=== PATIENT | female | born 1935 | race Caucasian/White ===

== ENCOUNTER → 2016-07-04 | Outpatient (CLI) | payer MEDICARE ==
[~2016-07-04] MED LIST: ACIDOPHILUS1 CA1 PO; ALLEGRA180 MG PO; AMLODIPINE BESYL5 MG PO; ANTIVERT; CALCIUM CITRATE PO; CALCIUM CITRATE1 T15 PO; CARAFATE1 G PO; DURAGESIC1 EAC1 TD; ESTER C 500 MG PO; FLECTOR1 EACH; FLECTOR1 EACH TOP; FLEXI JOINT TAB1 TA1 PO; FOLIC ACID; FOLIC ACID1 MG PO; FOSAMAX70 MG PO; FUROSEMIDE40 MG PO; IMDUR; K-DUR10 MEQ PO; KLOR-CON 88 ME1 PO; LASIX PO; LEVOXYL0.137 MG PO; LIPITOR; LOPRESSOR; LOPRESSOR PO; MAGOXIDE PO; METHOTREXATE2.5 MG; METHOTREXATE25 MG/M3 INJ; METHOTREXATE25 MG/M3 SUBQ; METOPROLOL TART25 MG PO; MIRALAX17 GM; MULTIVITAMIN1 UDCAP PO; NEXIUM; NORVASC; OMEPRAZOLE40 M1 PO; OMEPRAZOLE40 MG; OMEPRAZOLE40 MG PO; ONDANSETRON ODT4 MG PO; PERIACTIN4 M1 PO; PRAVACHOL80 MG PO; PRAVASTATIN SOD80 MG PO; PREDNISONE PO; PREDNISONE5 M1 PO; PREMARIN; REMERON15 MG PO; REMICADE INFUSION IV; SENNA; SERTRALINE HCL50 M1 PO; SYNTHROID; VIT D PO; VITAMIN E1000 UNIT PO; [UNRECOGNIZED DRUG - OTHER]
--- NOTE | ~2016-07-04 | CT2 ---
[facility] A Service of [facility] RADIOLOGY TEXT RESULTS PATIENT: KRISTA MEJÍA LOCATION: [facility] : 36 UNIT #: [id number] AGE: [address]: Chaz Escudero MD SEX: F ORDER DR: [id number] [facility] [address] [place], [place] [address] [id number] O MR#: [id number] Acc #: [id number] NAME: KRISTA MEJÍA. : 1935 SEX: F STUDY DATE/TIME: 07/04/2016 10:44 UNIT: [facility] ROOM: STUDY DESCRIPTION: CT Abd and Pelv W Cont Attending Physician: Chaz Escudero M.D. Ordering Physician: Chaz Escudero M.D. Primary Care Physician: Heber Grossman D.O. MEDICAL IMAGING REPORT This report is preliminary unless electronic signature is present EXAM CT abdomen and pelvis with contrast. INDICATION Restaging leukemia and colon cancer. Observation for metastatic disease. PROCEDURE Contrast-enhanced CT of the abdomen and pelvis. 100 mL of Isovue-370. This CT exam was performed with one or more of the following radiation dose reduction techniques: automatic exposure control, adjustment of mA and/or kV according to patient size, and iterative reconstruction. COMPARISON STUDIES 01/10/2016 FINDINGS ABDOMEN WITH CONTRAST: Refer to the separately dictated chest CT for thoracic findings. ABDOMEN WITH CONTRAST: Calcifications along the liver capsule posterior right hepatic lobe are stable. There is no liver mass. Spleen, kidneys, adrenal glands unremarkable. Pancreas is atrophic but otherwise unremarkable. Previous cholecystectomy. Bowel loops nondilated. PELVIS WITH CONTRAST: Previous hysterectomy. No pelvic mass or fluid. 2 cm right Bartholin gland cyst is stable. No aggressive appearing bone lesions. IMPRESSION 1. No acute findings in the abdomen or pelvis. 2. No convincing evidence for metastatic disease to the abdomen or pelvis. [facility] A Service of [facility] RADIOLOGY TEXT RESULTS PATIENT: KRISTA MEJÍA LOCATION: [facility] : 36 UNIT #: [id number] AGE: [address]: Chaz Escudero MD SEX: F ORDER DR: Dictated by... Good Coleman M.D. THIS IS AN ELECTRONICALLY VERIFIED REPORT Good Coleman M.D. at 07/04/2016 5:05 PM EED/emily TD: 07/04/2016 12:06 JOB #: [id number] MEDICAL IMAGING REPORT Page 1 of 1 COPY
--- NOTE | ~2016-07-04 | CT55 ---
[facility] A Service [facility] RADIOLOGY TEXT RESULTS PATIENT: KRISTA MEJÍA LOCATION: [facility] : 36 UNIT #: [id number] AGE: [address]: Chaz Escudero MD SEX: F ORDER DR: [id number] [facility] [address] [place], [place] [address] [id number] O MR#: [id number] Acc #: [id number] NAME: KRISTA MEJÍA : 1935 SEX: F STUDY DATE/TIME: 07/04/2016 10:44 UNIT: [facility] ROOM: STUDY DESCRIPTION: CT Chest W Con Attending Physician: Chaz Escudero M.D. Ordering Physician: Chaz Escudero M.D. Primary Care Physician: Heber Grossman D.O. MEDICAL IMAGING REPORT This report is preliminary unless electronic signature is present EXAM CT chest with contrast INDICATION Restaging leukemia and colon cancer. Observation for metastatic disease. PROCEDURE Contrast-enhanced CT chest. 100 mL of Isovue-370. COMPARISON 07/22/2012. TECHNIQUE This CT examination was performed with one or more of the following radiation dose reduction techniques: automatic exposure control, adjustment of mA and/or kV according to patient size, and iterative reconstruction. FINDINGS Elevated right hemidiaphragm with chronic atelectasis in the right lung base. Left lung is clear. No pathologically enlarged lymph nodes in the chest. Previously demonstrated prominent left axillary nodes are smaller and now normal in size. No aggressive appearing bone lesion. IMPRESSION 1. No convincing evidence for adenopathy in the chest. No evidence for metastatic disease. 2. The previously demonstrated prominent left axillary nodes are now normal in size. Dictated by... Good Coleman M.D. [facility] A Service [facility] RADIOLOGY TEXT RESULTS PATIENT: KRISTA MEÍJA LOCATION: [facility] : 36 UNIT #: [id number] AGE: [address]: Chaz Escudero MD SEX: F ORDER DR: THIS IS AN ELECTRONICALLY VERIFIED REPORT Good Coleman M.D. at 07/04/2016 5:05 PM CAROL/kane TD: 07/04/2016 12:32 JOB #: [id number] MEDICAL IMAGING REPORT Page 1 of 1 COPY
[2016-07-04 10:06] LABS: POC - CREATININE 0.89 mg/dL (0.44-1.03); POC - GFR >60.0 mL/min (>60)
== END | disposition home or self-care (01) ==
LOC: CCAT 09:21
PROVIDERS: Internal Medicine Medical Oncology
DX: C91.10 Chronic lymphocytic leukemia of B-cell type not having achieved remission (principal); C18.9 Malignant neoplasm of colon, unspecified
CPT/HCPCS: 71260; 74177; 82565; J1642; Q9967

== ENCOUNTER 2016-09-28 14:13 | Emergency (ER) | payer MEDICARE ==
--- NOTE | ~2016-09-28 | CT4 ---
[facility] A Service of [facility] RADIOLOGY TEXT RESULTS PATIENT: KRISTA MEJÍA LOCATION: [facility] : 36 UNIT #: [id number] AGE: [address]: Tim Martin MD SEX: F ORDER DR: [id number] [facility] [address] [place], [place] [address] [id number] E MR#: [id number] Acc #: [id number] NAME: KRISTA MEJÍA. : 1935 SEX: F STUDY DATE/TIME: 09/28/2016 16:15 UNIT: [facility] ROOM: STUDY DESCRIPTION: CT Abd and Pelv Wo Cont Attending Physician: Good Martin M.D. Ordering Physician: Ed Timothy Singh M.D. Primary Care Physician: Primary Care Physician No MEDICAL IMAGING REPORT This report is preliminary unless electronic signature is present EXAM CT abdomen and pelvis without contrast HISTORY Left lower quadrant pain since yesterday. Nausea, vomiting and diarrhea. FINDINGS CT abdomen and pelvis was performed without contrast. The exam is compared to CT 07/04/2016. This CT exam was performed with one or more of the following radiation dose reduction techniques: Automatic exposure control, adjustment of mA and/or kV according to patient size, and iterative reconstruction. CT ABDOMEN: Thin curvilinear calcification over the right hepatic lobe and extending into the right paracolic gutter is unchanged. Stable minimal calcification along the posterior margin of the spleen. No hepatic mass or biliary dilatation. Cholecystectomy. Mild generalized pancreatic parenchymal atrophy. No renal mass or hydronephrosis. Mild nonspecific bilateral perinephric stranding. The adrenal glands are normal. Normal caliber abdominal aorta. No bowel dilatation. No ascites. CT PELVIS: Hysterectomy. No free fluid or inflammatory changes. Rounded focal dense contrast or opaque foreign body along the right lateral margin of the rectum, and along the posterior margin of the proximal sigmoid colon in the left upper pelvis, unchanged. These could be postoperative. Urinary bladder is normal. 2.3 cm incidental Bartholin duct cyst along the right perineum. This is also stable. IMPRESSION 1. No acute findings in the abdomen or pelvis. 2. No significant change compared to 07/04/2016. 3. No urinary obstruction or bowel obstruction. [facility] A Service of [facility] RADIOLOGY TEXT RESULTS PATIENT: KRISTA MEJÍA LOCATION: [facility] : 36 UNIT #: [id number] AGE: [address]: Tim Martin MD SEX: F ORDER DR: 4. Cholecystectomy and hysterectomy. Dictated by... Nicanor Pelletier M.D. THIS IS AN ELECTRONICALLY VERIFIED REPORT Nicanor Pelletier M.D. at 09/29/2016 3:06 PM DFL/psc TD: 09/29/2016 01:41 JOB #: [id number] MEDICAL IMAGING REPORT Page 1 of 1 COPY
[~2016-09-28 14:13] MED LIST changes: -KLOR-CON 88 ME1 PO; -LOPRESSOR PO; -MAGOXIDE PO; -PERIACTIN4 M1 PO; -REMERON15 MG PO; -SERTRALINE HCL50 M1 PO; -VIT D PO
[2016-09-28 15:24] LABS: BASOPHIL% 0.3 % (0-2.5); EOSINOPHIL# 0.1 X10e3 (0-0.7); EOSINOPHIL% 0.5 % (0.0-7.0); HEMATOCRIT 42.2 % (35.0-45.0); HEMOGLOBIN 14.6 gm/dL (12.0-16.0); LYMPHOCYTE# 1.4 X10e3 (1.0-3.5); MEAN CELL VOLUME 82.2 FL (83-96); MEAN CORPUSCULAR HEMOGLOBIN 28.5 PG (28-34); MEAN CORPUSCULAR HGB CONC 34.7 g/dL (30-36); MEAN PLATELET VOLUME 7.5 FL (6.5-11.5); MONOCYTE# 1.9 X10e3 (0-1.0); MONOCYTE% 16.5 % (3.0-12.0); NEUTROPHIL# 8.1 X10e3 (1.5-7.1); NEUTROPHIL% 70.7 % (40-75); PLATELET COUNT 219 X10e3 (140-420); RED BLOOD COUNT 5.14 X10e (3.90-5.30); RED CELL DISTRIBUTION WIDTH 14.4 % (11.0-15.5); WHITE BLOOD COUNT 11.4 X10e3 (4.0-10.5)
[2016-09-28 15:27] LABS: DIFF IND NO
[2016-09-28 15:51] LABS: ALBUMIN SERUM 3.6 g/dL (3.5-5.0); BILIRUBIN, DIRECT 0.2 mg/dL (0.0-0.2); BILIRUBIN,INDIRECT 0.8 mg/dL (0.0-0.9); BUN/CREATININE RATIO 22.5; CALCIUM SERUM 8.3 mg/dL (8.4-10.2); CREATININE SERUM 0.4 mg/dL (0.6-1.4); GLOM FILT RATE Estimated 98.4 mL/min (>60); PROTEIN TOTAL SERUM 6.5 g/dL (6.0-8.3)
[2016-09-28 15:52] LABS: POTASSIUM 3.1 mmol/L (3.5-5.1)
[2016-09-28 17:12] LABS: URINE SOURCE CLEAN CATCH
[2016-09-28 17:17] LABS: URINE APPEARANCE CLEAR; URINE BILIRUBIN NEG (NEG); URINE BLOOD TRACE (NEG); URINE COLOR YELLOW; URINE GLUCOSE NEG (NEG); URINE KETONE NEG (NEG); URINE LEUKOCYTE ESTERASE NEG (NEG); URINE NITRATE NEG (NEG); URINE PROTEIN 2+ (NEG); URINE SPECIFIC GRAVITY 1.009 (1.003-1.035); URINE UROBILINOGEN 0.2 MG/DL (NEG)
[2016-09-28 17:42] LABS: URINE SQUAMOUS EPITHELIAL CELL OCCAS /[HPF]; UWBCS1 AUWI 0-2 (0-5)
[2016-09-28 17:43] LABS: CULTURE INDICATED? NO; U HYALINE CASTS AUWI 0-2 /[LPF]
[2016-12-16] MEDS ORDERED: AMLODIPINE BESYL5 MG PO (11:10)
[2016-12-16] MEDS ORDERED: PREDNISONE5 M1 PO (11:10)
[2016-12-16] MEDS ORDERED: SERTRALINE HCL50 M1 PO (11:10)
[2016-12-16] MEDS ORDERED: REMERON15 MG PO (11:11)
[2016-12-16] MEDS ORDERED: FUROSEMIDE40 MG PO (11:11)
[2016-12-16] MEDS ORDERED: LOPRESSOR PO (11:11)
[2016-12-16] MEDS ORDERED: OMEPRAZOLE40 M1 PO (11:11)
[2016-12-16] MEDS ORDERED: KLOR-CON 88 ME1 PO (11:12)
[2016-12-16] MEDS ORDERED: FOLIC ACID1 MG PO (11:12)
[2016-12-16] MEDS ORDERED: PERIACTIN4 M1 PO (11:13)
[2016-12-16] MEDS ORDERED: LEVOXYL0.137 MG PO (11:13)
[2016-12-16] MEDS ORDERED: MAGOXIDE PO (11:14)
[2016-12-16] MEDS ORDERED: VIT D PO (11:14)
== END 2016-09-28 18:17 | disposition home or self-care (01) ==
LOC: CED 14:13
DX: E87.1 Hypo-osmolality and hyponatremia (principal); E87.6 Hypokalemia; Z90.49 Acquired absence of other specified parts of digestive tract; Z90.710 Acquired absence of both cervix and uterus; Z79.899 Other long term (current) drug therapy
CPT/HCPCS: 36415; 74176; 80048; 80076; 81003; 83690; 85025; 96361; 96374; 99284; J2405

== ENCOUNTER → 2016-12-16 | Day surgery (SDC) | payer MEDICARE ==
[~2016-12-16] MED LIST changes: +KLOR-CON 88 ME1 PO; +LOPRESSOR PO; +MAGOXIDE PO; +PERIACTIN4 M1 PO; +REMERON15 MG PO; +SERTRALINE HCL50 M1 PO; +VIT D PO
--- NOTE | ~2016-12-16 | OR ---
Unit #: [id number] #: [id number] Patient: KRISTA MEJÍA [id number] [address] [address] [id number] O MR#: [id number] NAME: KRISTA MEJÍA ROOM: Date of Procedure: 12/16/2016 Admission Date: 12/16/2016 Surgeon: Tk Coats M.D. : 1935 Attending Physician: Tk Coats M.D. Primary Care Physician: Primary Care Physician No OPERATIVE REPORT PRIMARY CARE PHYSICIAN None. PREOPERATIVE DIAGNOSIS The patient has come for surveillance colonoscopy. She has personal history of colon cancer, status post resection in the past. PROCEDURES PERFORMED Colonoscopy and polypectomy. POSTOPERATIVE DIAGNOSES 1. The patient had a total of 5 polyps, 4 in the cecum, 1 in the ascending colon. All the polyps were removed using snare cautery polypectomy. They were retrieved and sent for histology. 2. Mild sigmoid and descending colon diverticulosis. 3. Rest of the examination up to cecum and terminal ileum was normal. The quality of the prep was good. RECOMMENDATIONS Follow up results of polyp histology and consider repeat colonoscopy in 5 years. SEDATION USED MAC. DESCRIPTION OF PROCEDURE Following detailed explanation of potential risks and complications of a colonoscopy, namely perforation, bleeding, and complications related to sedation, the patient was brought to GI lab and laid in the left lateral decubitus position. A digital rectal examination was performed, which was normal. Lubricated tip of the Olympus video colonoscope was inserted through the anus and advanced under direct vision. The scope was advanced and passed up to sigmoid into descending colon. Scant small diverticula were noted in this area. The scope tip was then navigated all the way up to cecum with visualization of the ileocecal valve and the appendiceal orifice. Preparation was good with good visualization and photodocumentation was obtained. Last few inches of the terminal ileum also visualized after intubation of the ileocecal valve and appeared normal. Successive segments of the colonic mucosa were examined upon withdrawal. The patient was noted to have multiple polyps. There were total of 4 polyps in the cecum. All these were removed using snare polypectomy. They ranged in size from 5 mm to 8 mm. One additional polyp Unit #: [id number] #: [id number] Patient: KRISTA MEJÍA was also noted in the ascending colon was also removed using snare polypectomy, retrieved and sent for histology. No additional polyps noted. The patient did have few diverticula in the sigmoid and descending colon. No internal hemorrhoids noted at the anal verge. The scope was then withdrawn. The patient returned to the recovery area. She tolerated the procedure without any postprocedure complications. Dictated by... Cricket Matt/edwardo TD: 12/16/2016 13:27 JOB #: [id number] OPERATIVE REPORT Page 1 of 1 X Tk Coats MD X PROCEDURE OPERATIVE NOTE
== END | disposition home or self-care (01) ==
LOC: COPS 10:41
DX: Z12.11 Encounter for screening for malignant neoplasm of colon (principal); D12.0 Benign neoplasm of cecum; D12.2 Benign neoplasm of ascending colon; K52.9 Noninfective gastroenteritis and colitis, unspecified; K57.30 Diverticulosis of large intestine without perforation or abscess without bleeding; K62.89 Other specified diseases of anus and rectum; I10 Essential (primary) hypertension; E03.9 Hypothyroidism, unspecified; K21.9 Gastro-esophageal reflux disease without esophagitis; M19.90 Unspecified osteoarthritis, unspecified site; Z85.038 Personal history of other malignant neoplasm of large intestine; Z86.010 Personal history of colon polyps; Z87.01 Personal history of pneumonia (recurrent); Z79.899 Other long term (current) drug therapy; Z90.49 Acquired absence of other specified parts of digestive tract; Z90.710 Acquired absence of both cervix and uterus; Z96.652 Presence of left artificial knee joint
CPT/HCPCS: 88305